=== PATIENT | male | born 1990 | race African-American/Black ===

== ENCOUNTER 2018-04-20 13:26 | Emergency (ER) | payer OTHER ==
[~2018-04-20] VITALS: Ht 185.4 cm; Wt 135.2 kg
--- NOTE | 2018-04-20 13:51 | ED PSYCHIATRIC COMPLAINT ---
See Addendum History of Present Illness General Chief Complaint: Psychiatric Related Complaint Stated Complaint: DEPRESSION, +SI Source: patient, family Exam Limitations: no limitations Vital Signs & Intake/Output Vital Signs & Intake/Output Vital Signs Date Time Temp Pulse Resp B/P B/P Pulse O2 O2 Flow FiO2 Mean Ox Delivery Rate 04/20 2016 98.5 54 20 156/88 100 Room Air 04/20 1754 98.8 65 20 145/71 99 Room Air 04/20 1605 100.3 72 18 158/95 98 Room Air 04/20 1335 99.1 93 20 151/80 97 Room Air ED Intake and Output 04/21 0000 04/20 1200 Intake Total 240 Output Total Balance 240 Intake, Oral 240 Patient 298 lb Weight Weight Reported by Patient Measurement Method Allergies Coded Allergies: No Known Allergies (07/02/17) Reconcile Medications No Known Home Medications Triage Note: PT TO ED C/O WORSENING DEPRESSION, +SI. "I WOULD HANG OUT AT THE PARK AND AT THE END OF THE DAY I WOULD DROWN MYSELF". DENIES HI. DENIES ETOH/DRUGS. Triage Nurses Notes Reviewed? yes Onset: Gradual Duration: getting worse Timing: recent history Severity: severe Severity Numbers: 10 HPI: Patient is a 27-year-old male with a past medical history depression who presents emergency room with concerns of worsening depression and suicide ideation where he has thoughts of drowning himself. he lives in a private residence with his brother. Patient does smoke marijuana however nothing in the past 3 weeks. Denies any homicidal ideation denies any current illness denies any alcohol but does smoke tobacco. Denies any auditory or visual hallucinations. Patient states that one year ago he was admitted for similar concerns of depression at [facility] however he did not follow-up patient NOR DOES HE take any medications for his symptoms. (Vidal Alan) Past History Travel History Traveled to [place] past 21 day No Medical History Any Pertinent Medical History? see below for history Neurological: NONE EENT: NONE Cardiovascular: NONE Respiratory: NONE Gastrointestinal: NONE Hepatic: NONE Renal: NONE Musculoskeletal: NONE Psychiatric: depression Endocrine: NONE Blood Disorders: NONE Cancer(s): NONE VALUATION MANAGER/Reproductive: NONE Surgical History Surgical History: non-contributory Psychosocial History What is your primary language Ukrainian Tobacco Use: Current Daily Use Daily Tobacco Use Amount/Type: => 5 Cigarettes daily ETOH Use: denies use Illicit Drug Use: denies illicit drug use Family History Hx Contributory? No (Vidal Alan) Review of Systems Review of Systems Constitutional: Reports: no symptoms. EENTM: Reports: no symptoms. Respiratory: Reports: no symptoms. Cardiovascular: Reports: no symptoms. GI: Reports: no symptoms. Genitourinary: Reports: no symptoms. Musculoskeletal: Reports: no symptoms. Skin: Reports: no symptoms. Neurological/Psychological: Reports: see HPI, depressed. Hematologic/Endocrine: Reports: no symptoms. Immunologic/Allergic: Reports: no symptoms. All Other Systems: Reviewed and Negative (Vidal Alan) Physical Exam Physical Exam General Appearance: no apparent distress, alert, comfortable Head: atraumatic Eyes: Bilateral: normal appearance, PERRL, EOMI. Ears, Nose, Throat: normal ENT inspection, hearing grossly normal Neck: normal inspection Respiratory: normal breath sounds Cardiovascular: regular rate/rhythm Neurological/Psychiatric: no motor/sensory deficits, awake, agitated, alert, calm, press tender smoke signal II-XII nml as tested Appearance/Memory/Insight: appropriate appearance, appropriate insight, denies illness Behavoir/Eye Contact/Speech: cooperative, normal speech, good eye contact Thoughts/Hallucinations: no apparent hallucination SAD PERSONS SAD PERSONS Response Value Male Sex? yes 1 Depression/Hopelessness? yes 2 Single//? yes 1 Organized/Serious Attempt yes 2 Stated Future Intent? yes 2 Total 8 SAD PERSONS Done? yes (Vidal Alan) Progress Differential Diagnosis: drug intoxication, drug overdose, drug withdrawal, electrolyte abnormality, encephalitis, hypoglycemia, hypothyroidism, IC hem/mass /tumor, meningitis Plan of Care: Orders Procedure Date/time Status Regular Diet 04/20 D Active Continuous Observation Monitor 04/20 1334 Active URINE DRUG SCREEN FOR ER ONLY 04/20 1334 Complete URINALYSIS 04/20 1334 Complete ETHANOL 04/20 1334 Complete COMPREHENSIVE METABOLIC PANEL 04/20 1334 Complete CBC WITHOUT DIFFERENTIAL 04/20 133 Complete ED CRISIS PSYCH CONSULT 04/20 1334 Active Laboratory Tests 04/20/18 1410: Urine Opiates Screen < 100, Methadone Screen < 40, Barbiturate Screen < 60, Ur Phencyclidine Scrn < 6.00, Amphetamines Screen < 100, U Benzodiazepines Scrn < 85, Urine Cocaine Screen < 50, Urine Cannabis Screen 78.80 H, Urine Color YEL, Urine Clarity HAZY H, Urine pH 6.0, Ur Specific [place] >= 1.030, Urine Protein TRACE H, Urine Ketones TRACE H, Urine Nitrite NEG, Urine Bilirubin NEG@ICTO, Urine Urobilinogen 1.0, Ur Leukocyte Esterase NEG, Ur Microscopic SEDIMENT EXAMINED, Urine WBC 1-3 H, Urine Mucus FEW, Urine Hemoglobin NEG, Urine Glucose NEG 04/20/18 1340: Anion Gap 15, Estimated GFR > 60, BUN/Creatinine Ratio 10.0, Glucose 97, Calcium 9.7, Total Bilirubin 0.8, AST 18, ALT 26, Alkaline Phosphatase 102, Total Protein 7.3, Albumin 4.5, Globulin 2.8, Albumin/Globulin Ratio 1.6, CBC w Diff NO MAN DIFF REQ, RBC 5.42, MCV 79.7 L, MCH 25.7 L, MCHC 32.2 L, RDW 14.6 H, MPV 10.9 H, Gran % 67.7, Lymphocytes % 22.5, Monocytes % 6.3, Eosinophils % 2.8 , Basophils % 0.7, Absolute Granulocytes 6.4, Absolute Lymphocytes 2.1, Absolute Monocytes 0.6, Absolute Eosinophils 0.3, Absolute Basophils 0.1, Serum Alcohol < 10.0 Patient upon initial presentation is resting comfortably bedside no apparent distress no signs of intoxication is identified to me that patient was evaluated by crisis management and made an appointment tomorrow for IOP (Vidal Alan) Departure Departure Disposition: STILL A PATIENT Condition: Stable Clinical Impression Primary Impression: Depression Referrals: Patient Has No Primary Care Dr (PCP/Family) Additional Instructions: AAS Discussed please go to appointment tomorrow for IOP that was made for you in the emergency room for further evaluation treatment. If symptoms worsen or if he develop any new concerning symptom return to emergency room. Departure Forms: Customer Survey General Discharge Information Prescriptions: Current Visit Scripts No Known Home Medications (Vidal Alan) PA/COMMUNITY ARTS OFFICER Co-Sign Statement Statement: ED Attending supervision documentation- [] I saw and evaluated the patient. I have also reviewed all the pertinent lab results and diagnostic results. I agree with the findings and the plan of care as documented in the PA's/COMMUNITY ARTS OFFICER's documentation. [x] I have reviewed the ED Record and agree with the PA's/COMMUNITY ARTS OFFICER's documentation. [] Additions or exceptions (if any) to the PAs/COMMUNITY ARTS OFFICER's note and plan are summarized below: [] (Gary BARBOZA,Johnie) Critical Care Note Critical Care Note Critical Care Time: 30-74 min (Kellie WATERMAN,Vidal)
[2018-04-20 13:52] LABS: ABSOLUTE BASOPHIL COUNT 0.1 /CUMM (0.0-0.2); ABSOLUTE EOSINOPHIL COUNT 0.3 /CUMM (0.0-0.7); ABSOLUTE GRANULOCYTE CT 6.4 /CUMM (1.4-6.5); ABSOLUTE LYMPH COUNT 2.1 /CUMM (1.2-3.4); ABSOLUTE MONOCYTE COUNT 0.6 /CUMM (0.10-0.60); BASOPHIL % 0.7 % (0.0-2.0); EOSINOPHIL % 2.8 % (0-5); GRANULOCYTE % 67.7 % (42.2-75.2); HEMATOCRIT 43.2 % (42-52); MEAN CORPUSCULAR HGB 25.7 PG (27.0-31.0); MEAN CORPUSCULAR HGB CONC 32.2 G/DL (33.0-37.0); MEAN CORPUSCULAR VOLUME 79.7 FL (80.0-94.0); MEAN PLATELET VOLUME 10.9 FL (7.4-10.4); PLATELET COUNT 249 /CUMM (130-400); RBC DISTRIBUTION WIDTH 14.6 % (11.5-14.5); RED BLOOD CELL CT 5.42 /CUMM (4.70-6.10); WHITE BLOOD CELL COUNT 9.5 /CUMM (4.8-10.8)
--- NOTE | 2018-04-20 19:42 | ED PSYCH CRISIS CONSULTATION ---
See Addendum Crisis Consult Basic Assessment Date of Consult: 04/20/18 Responsible Person/Accompanied By: self and mother Insurance Authorization: Insurance #1: Insurance name: [employer]ATHER[employer] Phone number: Policy number: [id number] Group number: [employer] [place] Authorization number: ED Provider: Patient's ED Provider: Vidal Alan Primary Care Physician: Patient's PCP: Patient Has No Primary Care Dr PCP's Phone Number: Current Psychiatrist: None Chief Complaint: Psychiatric Related Complaint Patient's Quote: I've been feeling depressed lately, can't do anything" Present Illness: Pt. is a 27 year old male who lives with his brother in an apartment. Their mother, who is a support to pt. lives upstairs. Pt is unemployed. 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 He stated he spends his days reading and watching tv. When asked if being laid off contributed to his depression he replied "I've had years and years of depression". He denied ever having treatment for his depression. He attempted to seek treatment last year by coming to the ED and was given an OP or IOP appointment but did not follow up with treatment. He stated he called to get an appointment again about 6 months ago, made an appointment and didn't show. He said that at times he feels suicidal but "it comes and goes" and more recently he has been thinking about different ways he could kill himself "what's easiest or what's most accessible" but when pressed on this he could not name a method. He denied HI and he said that when he doesn't sleep he sees things out of the corner of his eyes or "hears a bang". He reported he has trouble sleeping but also "has trouble being awake, is not happy and it's hard to do anything". He lives with his brother but they do not have a good relationship. His mother who was present stated that her other son, his brother is "stone cold" and not empathetic but that Shan is caring and needs his loved ones to say "I love you". Shan said that his brother usually ignored him but that recently they had been fighting. He also reported that he had a close relationship with his sister but they had a falling out a few days ago. Shan reported that he used to smoke marijuana but stopped 3-4 weeks ago because he couldn't afford it anymore. He said that he would use it again if he had the money. He smoked 1/8 a day from age [age], until 3 weeks ago. He stated he was willing to attend IOP or OP but was anxious about groups, later he changed and said that "he wasn't ready for treatment before but he is now and he will do groups." Patient's Address: [address] [place] [address] Other Phone Number: Who Do You Live With? Family Family/Informants Interviewed: Mother was present for the interview. She was supportive and she reported that she is the only person her son confides in. She stated she was concerned about him but did not feel he was a danger to himself at this time. She stated she was very willing to help him get into treatment. Allergies - Coded Allergies: No Known Allergies (07/02/17) Current Medications - No Known Home Medications Laboratory Results: Laboratory Tests 04/20/18 1410: Urine Opiates Screen < 100, Methadone Screen < 40, Barbiturate Screen < 60, Ur Phencyclidine Scrn < 6.00, Amphetamines Screen < 100, U Benzodiazepines Scrn < 85, Urine Cocaine Screen < 50, Urine Cannabis Screen 78.80 H, Urine Color YEL, Urine Clarity HAZY H, Urine pH 6.0, Ur Specific [place] >= 1.030, Urine Protein TRACE H, Urine Ketones TRACE H, Urine Nitrite NEG, Urine Bilirubin NEG@ICTO, Urine Urobilinogen 1.0, Ur Leukocyte Esterase NEG, Ur Microscopic SEDIMENT EXAMINED, Urine WBC 1-3 H, Urine Mucus FEW, Urine Hemoglobin NEG, Urine Glucose NEG 04/20/18 1340: Anion Gap 15, Estimated GFR > 60, BUN/Creatinine Ratio 10.0, Glucose 97, Calcium 9.7, Total Bilirubin 0.8, AST 18, ALT 26, Alkaline Phosphatase 102, Total Protein 7.3, Albumin 4.5, Globulin 2.8, Albumin/Globulin Ratio 1.6, CBC w Diff NO MAN DIFF REQ, RBC 5.42, MCV 79.7 L, MCH 25.7 L, MCHC 32.2 L, RDW 14.6 H, MPV 10.9 H, Gran % 67.7, Lymphocytes % 22.5, Monocytes % 6.3, Eosinophils % 2.8 , Basophils % 0.7, Absolute Granulocytes 6.4, Absolute Lymphocytes 2.1, Absolute Monocytes 0.6, Absolute Eosinophils 0.3, Absolute Basophils 0.1, Serum Alcohol < 10.0 Past History Past Medical History Neurological: NONE EENT: NONE Cardiovascular: NONE Respiratory: NONE Gastrointestinal: NONE Hepatic: NONE Renal: NONE Musculoskeletal: NONE Psychiatric: depression Endocrine: NONE Blood Disorders: NONE Cancer(s): NONE EMULSION COATER/Reproductive: NONE Past Surgical History Surgical History: non-contributory Psychosocial History Strengths/Capabilities: pt. is capable of coming and asking for help, is articulate and is actively seeking treatment. Physical Limitations (Interventions): none reported Psychiatric Treatment History Psych Treatment Psychiatric Treatment No Inpatient Treatment No Outpatient Treatment No Location of Treatment No previous treatment except at [facility] 1x Reason for Treatment Depression Diagnosis by History: None Substance Use/Abuse History Drug Use/Abuse Substances Used/Abused Yes Substance Used/Abused Marijuana First Use teen years, really started at age 20 Last Used 3 weeks ago How much used/taken 1/8 per day How often daily For how long 7 years Substance Abuse Treatment Substance Abuse Treatment Past Substance Abuse [place] No Inpatient Treatment No Outpatient Treatment No Current Mental Status Mental Status Orientation: Person, Place, Situation Affect: Flat, Sad Speech: Soft Neuro-vegetative: Anhedonia, Concentration Poor, Energy Decreased, Loss of Interest, Sleep Disturbance Appearance Appearance- Dress/Hygiene: good hygiene, soft spoken in paper hospital gown. Behaviors Thought Process: WNL Thought Content: WNL Memory: WNL Insight: Fair SI/HI Risk Assessment Past Suicidal Ideation/Attempts Yes Current Suicidal Ideation/Att No Past Homicidal Ideation/Att: No Current Homicidal Ideation/Attempts No Degree of Intent: Thoughts/No Intent Danger To: Self Gravely Disabled: Poor Judgment Risk Factors: substance abuse, male, limited support Lethality Ratin PTSD Checklist PTSD Score: PTSD Score: Response Value Disturbing memories,thoughts,images of stressful experience? Extremely 5 Disturbing dreams of stressful experience from past? Moderately 3 Suddenly acting/feeling as if reliving stressful experience? A little bit 2 Unpleasant feeling when reminded of stressful experience? Extremely 5 Physical reactions when reminded of stressful experience? Moderately 3 Avoid thinking/talking of stressful exp. to avoid reactions? A little bit 2 Avoid activities/situations that remind of stressful exp.? A little bit 2 Trouble remembering important parts of stressful experience? Not at all 1 Loss of interest in things that you used to enjoy? Extremely 5 Feeling distant or cut off from other people? Quite a bit 4 Feeling emotionally numb/unable to love those close to you? Extremely 5 Feeling as if your future will somehow be cut short? Not at all 1 Trouble falling or staying asleep? Extremely 5 Feeling irritable or having angry outbursts? Moderately 3 Having difficulty concentrating? Extremely 5 Being super alert or watchful on guard? Not at all 1 Feeling jumpy or easily startled? Not at all 1 Total 53 ED Management Sitter: Yes Restraints: No DSM5/PS Stressors/Medical Prob Diagnosis' (DSM 5, Stressors, Medical): F32.2 Major Depressive Disorder Severe F12.90 Cannabis Use Disorder Current GAF: 45 Departure Disposition Psych Medical Clearance Date: 04/20/18 Medically Cleared at: 1929 Time Started: 1929 Time Ended: 1929 Psychiatrist Consulted: Jolie Lopes MD Date Disposition Established: 04/20/18 Time Disposition Established: 1999 Plan for Disposition - Modality: [facility] Facility: [facility] Follow-up Appt Date: 04/21/18 Rationale for Disposition: Pt. not actively suicidal, does not have access to guns or other weapons. Pt. is agreeable to go home and sleep on his mother's couch and follow up with IOP in the morning. Mother is in agreement with the plan. Dr. Lopes consulted and she agreed with the plan to send him to IOP tomorrow and send pt. home with a safety plan including staying with mother. Family given instructions to call IOP in the morning. Clinician emailed IOP staff to call mother to follow up with appointment time. Additional Instructions: CSSRS administered and pt. presented with risk factors including suicidal thoughts, suicidal thoughts with method but no intent (can't name method but has thought about it), recent loss or negative events: fight with sister, feeling alone, not receiving treatment, hopeless, major depressive episode, substance abuse dependence. Protective factors include: living with family, supportive social network or family. Referrals Patient Has No Primary Care Dr (PCP/Family)
[2018-04-20 20:16] VITALS: BP 156/88
== END 2018-04-20 20:53 ==
LOC: ERH 13:26
PROVIDERS: Physician Assistant
DX: F32.9 Major depressive disorder, single episode, unspecified (principal)
CPT/HCPCS: 80307; 81001; G0463; G0480